=== PATIENT | female | born 1990 | race Caucasian/White ===

== ENCOUNTER 2022-09-21 15:52 | Emergency (ER) | payer OTHER ==
[~2022-09-21] VITALS: Ht 167.6 cm; Wt 83.9 kg
[2022-09-21 16:22] LABS: BASO % 0.1 % (0.0-1.0); EOS % 0.2 % (1.0-4.0); HEMATOCRIT 46.3 % (37.0-47.0); LYMPH # 2.3 10*3/uL (1.3-4.4); LYMPH % 13.6 % (27.0-41.0); MEAN CELL VOLUME 83.6 fl (81.0-99.0); MEAN CORPUSCULAR HGB 29.2 pg (27.0-31.0); MEAN PLATELET VOLUME 9.7 fl (9.6-12.3); MONO # 0.6 10*3/uL (0.1-1.0); MONO % 3.6 % (3.0-9.0); NEUT % 82.1 % (47.0-73.0); PLATELET COUNT AUTOMATED 363 10*3/uL (130-400); RED BLOOD COUNT 5.54 10*6/uL (4.10-5.10); RED CELL DISTRI WIDTH 13.1 % (0-14.5)
[2022-09-21 17:16] LABS: ALKALINE PHOSPHATASE 86 U/L (46-116); BUN 12 mg/dl (9-23); CHLORIDE 104 mmol/L (98-107); POTASSIUM 4.1 mmol/L (3.4-5.1); SGPT/ALT 10 U/L (10-49); TOTAL PROTEIN 7.2 gm/dL (6.0-8.0)
[2022-09-21] MEDS ORDERED: PREDNISONE20 M1 PO (17:30)
[2022-09-21] MEDS ORDERED: EPIPEN 2-P0.3 MG/0.3 IJ (17:30)
[2022-09-21] MEDS ORDERED: BENADRYL ALLERG25 M5 PO (17:30)
[2022-09-22] MEDS ORDERED: PREDNISONE50 MG PO (23:12)
== END 2022-09-21 17:43 | disposition home or self-care (01) ==
LOC: ED 15:52
PROVIDERS: Emergency Medicine
DX: T63.441A Toxic effect of venom of bees, accidental (unintentional), initial encounter (principal); T78.2XXA Anaphylactic shock, unspecified, initial encounter; F17.200 Nicotine dependence, unspecified, uncomplicated; X58.XXXA Exposure to other specified factors, initial encounter

== ENCOUNTER 2022-09-22 22:19 | Emergency (ER) | payer OTHER ==
[~2022-09-22] VITALS: Ht 167.6 cm; Wt 83.9 kg
[~2022-09-22 22:19] MED LIST: BENADRYL ALLERG25 M5 PO; EPIPEN 2-P0.3 MG/0.3 IJ; PREDNISONE20 M1 PO
[2022-09-22] MEDS ORDERED: PREDNISONE50 MG PO (23:12)
[2022-09-24] MEDS ORDERED: PREDNISONE10 M1 PO (03:06)
[2022-09-24] MEDS ORDERED: PEPCID20 MG PO (03:06)
[2022-09-24] MEDS ORDERED: BENADRYL ALLERG25 M5 PO (03:06)
== END 2022-09-23 00:05 | disposition home or self-care (01) ==
LOC: ED 22:19
DX: T78.40XA Allergy, unspecified, initial encounter (principal); Z87.891 Personal history of nicotine dependence; X58.XXXA Exposure to other specified factors, initial encounter

== ENCOUNTER 2022-09-23 23:10 | Emergency (ER) | payer OTHER ==
[~2022-09-23] VITALS: Ht 167.6 cm; Wt 83.9 kg
[~2022-09-23 23:10] MED LIST changes: +PREDNISONE50 MG PO
[2022-09-24 00:08] LABS: BASO % 0.1 % (0.0-1.0); EOS % 0.2 % (1.0-4.0); HEMATOCRIT 36.4 % (37.0-47.0); LYMPH # 2.6 10*3/uL (1.3-4.4); MEAN CELL VOLUME 84.3 fl (81.0-99.0); MEAN CORPUSCULAR HGB 29.4 pg (27.0-31.0); MEAN CORPUSCULAR HGB CONC 34.9 g/dl (33.0-37.0); MONO % 6.7 % (3.0-9.0); NEUT # 11.7 10*3/uL (2.3-7.9); NEUT % 75.7 % (47.0-73.0); PLATELET COUNT AUTOMATED 313 10*3/uL (130-400); RED BLOOD COUNT 4.32 10*6/uL (4.10-5.10); RED CELL DISTRI WIDTH 13.2 % (0-14.5); WHITE BLOOD COUNT 15.4 10*3/uL (4.8-10.8)
[2022-09-24 00:29] LABS: ALKALINE PHOSPHATASE 58 U/L (46-116); BUN 14 mg/dl (9-23); CHLORIDE 110 mmol/L (98-107); POTASSIUM 3.3 mmol/L (3.4-5.1); SGPT/ALT 8 U/L (10-49); TOTAL PROTEIN 6.2 gm/dL (6.0-8.0)
[2022-09-24] MEDS ORDERED: PREDNISONE10 M1 PO (03:06)
[2022-09-24] MEDS ORDERED: PEPCID20 MG PO (03:06)
[2022-09-24] MEDS ORDERED: BENADRYL ALLERG25 M5 PO (03:06)
== END 2022-09-24 03:10 | disposition home or self-care (01) ==
LOC: ED 23:10
PROVIDERS: Emergency Medicine
DX: T78.40XA Allergy, unspecified, initial encounter (principal); M19.90 Unspecified osteoarthritis, unspecified site; Z88.8 Allergy status to other drugs, medicaments and biological substances; X58.XXXA Exposure to other specified factors, initial encounter

== ENCOUNTER 2022-09-25 13:33 | Emergency (ER) | payer OTHER ==
[~2022-09-25] VITALS: Wt 83.9 kg
[~2022-09-25 13:33] MED LIST changes: +PEPCID20 MG PO; +PREDNISONE10 M1 PO
[2022-09-25 15:27] LABS: HEMATOCRIT 38.7 % (37.0-47.0); MEAN CELL VOLUME 84.3 fl (81.0-99.0); MEAN CORPUSCULAR HGB CONC 34.4 g/dl (33.0-37.0); MEAN PLATELET VOLUME 9.6 fl (9.6-12.3); PLATELET COUNT AUTOMATED 404 10*3/uL (130-400); RED BLOOD COUNT 4.59 10*6/uL (4.10-5.10); RED CELL DISTRI WIDTH 13.2 % (0-14.5); WHITE BLOOD COUNT 14.3 10*3/uL (4.8-10.8)
[2022-09-25 15:33] LABS: MANUAL DIFF REFLEX YES
[2022-09-25 15:48] LABS: ALKALINE PHOSPHATASE 57 U/L (46-116); BUN 14 mg/dl (9-23); CHLORIDE 106 mmol/L (98-107); POTASSIUM 3.1 mmol/L (3.4-5.1); SGPT/ALT 10 U/L (10-49); TOTAL PROTEIN 6.3 gm/dL (6.0-8.0)
[2022-09-25 15:51] LABS: TOTAL CELLS COUNTED 100 #CELLS
[2022-09-25 15:52] LABS: PLATELET SUFFICIENCY NORMAL (NORMAL)
== END 2022-09-25 19:00 | disposition home or self-care (01) ==
LOC: ED 13:33
PROVIDERS: Physician Assistant Medical
DX: J35.1 Hypertrophy of tonsils (principal); M19.90 Unspecified osteoarthritis, unspecified site; Z88.8 Allergy status to other drugs, medicaments and biological substances

== ENCOUNTER → 2022-11-23 | Outpatient (CLI) | payer OTHER | END | disposition home or self-care (01) | LOC: RAD 12:34 | PROVIDERS: ATTEND Family Medicine | DX: M77.8 Other enthesopathies, not elsewhere classified (principal) ==

== ENCOUNTER 2023-12-30 21:00 | Emergency (ER) | payer OTHER ==
[~2023-12-30] VITALS: Ht 170.1 cm; Wt 83.5 kg
[2023-12-30] MEDS ORDERED: FLUORESCEIN SODIUM 1 MG STRIP OPH ONE (21:25)
[2023-12-30] MEDS ORDERED: CILOXAN3.5 GM OP (21:42)
== END 2023-12-30 21:53 | disposition home or self-care (01) ==
LOC: ED 21:00
DX: S00.211A Abrasion of right eyelid and periocular area, initial encounter (principal); M19.90 Unspecified osteoarthritis, unspecified site; Z88.8 Allergy status to other drugs, medicaments and biological substances; Z87.891 Personal history of nicotine dependence; X58.XXXA Exposure to other specified factors, initial encounter; Y93.89 Activity, other specified; Y92.009 Unspecified place in unspecified non-institutional (private) residence as the place of occurrence of the external cause; Y99.8 Other external cause status

== ENCOUNTER 2024-03-30 16:11 | Emergency (ER) | payer OTHER ==
[~2024-03-30] VITALS: Ht 167.6 cm; Wt 81.6 kg
[~2024-03-30 16:11] MED LIST changes: +CILOXAN3.5 GM OP
[2024-03-30] MEDS ORDERED: SODIUM CHLORIDE 0.9% 1,000 ML IV ONE (18:40)
[2024-03-30] MEDS ORDERED: Ondansetron Hydrochloride 4 MG/2 ML VIAL IV ONE (18:40)
[2024-03-30 18:58] LABS: BASO % 0.4 % (0.0-1.0); EOS # 0.1 10*3/uL (0.0-0.4); EOS % 1.3 % (1.0-4.0); HEMATOCRIT 39.3 % (37.0-47.0); MEAN CELL VOLUME 88.7 fl (81.0-99.0); MEAN CORPUSCULAR HGB 29.1 pg (27.0-31.0); MEAN CORPUSCULAR HGB CONC 32.8 g/dl (33.0-37.0); MEAN PLATELET VOLUME 9.4 fl (9.6-12.3); MONO # 0.5 10*3/uL (0.1-1.0); MONO % 6.1 % (3.0-9.0); NEUT % 61.7 % (47.0-73.0); PLATELET COUNT AUTOMATED 305 10*3/uL (130-400); RED BLOOD COUNT 4.43 10*6/uL (4.10-5.10); RED CELL DISTRI WIDTH 12.2 % (0-14.5); WHITE BLOOD COUNT 8.2 10*3/uL (4.8-10.8)
[2024-03-30 19:19] LABS: ALKALINE PHOSPHATASE 61 U/L (46-116); BUN 15 mg/dl (9-23); CHLORIDE 104 mmol/L (98-107); LIPASE 30 U/L (12-53); POTASSIUM 3.8 mmol/L (3.4-5.1); SGPT/ALT 25 U/L (5-49); TOTAL PROTEIN 6.4 gm/dL (6.0-8.0)
[2024-03-30] MEDS ORDERED: Ondansetron4 MG PO (20:07)
== END 2024-03-30 20:12 | disposition home or self-care (01) ==
LOC: ED 16:11
PROVIDERS: Nurse Practitioner Family
DX: K62.5 Hemorrhage of anus and rectum (principal); M19.90 Unspecified osteoarthritis, unspecified site; R53.1 Weakness; Z88.8 Allergy status to other drugs, medicaments and biological substances; Z98.890 Other specified postprocedural states

== ENCOUNTER 2024-09-06 00:08 | Emergency (ER) | payer OTHER ==
[~2024-09-06] VITALS: Ht 170.1 cm; Wt 86.2 kg
[~2024-09-06 00:08] MED LIST changes: +Ondansetron4 MG PO
[2024-09-06] MEDS ORDERED: NAPROXEN250 MG PO (00:57)
== END 2024-09-06 01:09 | disposition home or self-care (01) ==
LOC: ED 00:08
DX: S60.221A Contusion of right hand, initial encounter (principal); Z88.8 Allergy status to other drugs, medicaments and biological substances; Z79.899 Other long term (current) drug therapy; W22.09XA Striking against other stationary object, initial encounter; Y93.89 Activity, other specified; Y92.89 Other specified places as the place of occurrence of the external cause; Y99.8 Other external cause status

== ENCOUNTER → 2024-12-02 | Outpatient (CLI) | payer OTHER ==
[~2024-12-02] MED LIST changes: +NAPROXEN250 MG PO
== END | disposition home or self-care (01) ==
LOC: ORTHO 02:02
PROVIDERS: ATTEND Orthopaedic Surgery
DX: S62.634D Displaced fracture of distal phalanx of right ring finger, subsequent encounter for fracture with routine healing (principal); M79.641 Pain in right hand; X58.XXXD Exposure to other specified factors, subsequent encounter

== ENCOUNTER → 2024-12-24 | Day surgery (SDC) | payer OTHER ==
[2024-12-22 13:31] LABS: BUN 12 mg/dl (9-23)
[~2024-12-24] VITALS: Ht 167.6 cm; Wt 86.2 kg
[~2024-12-24] MED LIST changes: +ATORVASTATIN CA20 M1 PO; +IBU800 M2 PO; +Ketamine Hydrochloride 50 MG/5 ML SYRINGE IV ONE; +Lactated Ringer's Solution 1,000 ML IV ONE; +Lidocaine Hydrochloride 30 ML VIAL ONE; +Lidocaine Hydrochloride 5 ML VIAL IV ONE; +Midazolam Hydrochloride 2 MG/2 ML VIAL IV ONE; +Ondansetron Hydrochloride 4 MG/2 ML VIAL IV ONE; +PROPOFOL 200 MG/20 ML VIAL IV ONE; +Phenylephrine Hydrochloride 1 MG/10 ML SYRINGE IV ONE; +Ropivacaine Hydrochloride 5 MG/ML 20 ML AMP IJ ONE; +Water, Sterile 10 ML VIAL IV ONE; +Water, Sterile 10 ML VIAL ONE
[2024-12-24 08:00] VITALS: BP 136/64
[2024-12-24 11:54] VITALS: BP 136/67
[2024-12-24 12:09] VITALS: BP 145/98
[2024-12-24 12:24] VITALS: BP 141/57
[2024-12-24 12:39] VITALS: BP 101/57
[2024-12-24 12:50] VITALS: BP 102/58
== END | disposition home or self-care (01) ==
LOC: SDC 12-22 08:45
PROVIDERS: ATTEND Orthopaedic Surgery
DX: G56.21 Lesion of ulnar nerve, right upper limb (principal); E78.00 Pure hypercholesterolemia, unspecified; F31.9 Bipolar disorder, unspecified; F41.9 Anxiety disorder, unspecified; K21.9 Gastro-esophageal reflux disease without esophagitis; F43.10 Post-traumatic stress disorder, unspecified; G47.419 Narcolepsy without cataplexy; C44.90 Unspecified malignant neoplasm of skin, unspecified; Z88.8 Allergy status to other drugs, medicaments and biological substances; F17.200 Nicotine dependence, unspecified, uncomplicated; Z98.891 History of uterine scar from previous surgery; Z98.890 Other specified postprocedural states; Z79.899 Other long term (current) drug therapy